=== PATIENT | male | born 1960 | race Two or more races ===

== ENCOUNTER 2018-08-22 05:37 | Day surgery (SDC) | payer OTHER ==
[2018-08-22] MEDS ORDERED: PERCOCET 5-3251 EACH PO (08:49)
[2018-08-22] MEDS ORDERED: RECTICARE30 GM TOP (08:50)
== END 2018-08-22 12:30 | disposition home or self-care (01) ==
LOC: CIR.AMB 05:37
DX: K62.0 Anal polyp (principal)